=== PATIENT | male | born 1995 | race Hispanic/Latino ===

== ENCOUNTER 2018-02-23 05:16 | Emergency (ER) | payer BC, OTHER ==
[2018-02-23 06:09] LABS: Absolute Lymphocytes (CBC) 0.3 K/uL (0.7-4.9); Absolute Monocytes 0.4 K/uL (0.1-1.3); Absolute Neutrophil 7.5 K/uL (1.8-8.0); Basophils % 0.1 % (0-1.3); Eosinophils % 1.3 % (0-4.4); Hematocrit 46.5 % (39.6-49.0); Lymphocytes % 4.1 % (15.3-44.8); MCH 32.3 pg (27.0-35.0); MCV 93.7 fL (80-100); MPV 8.2 fL (7.6-11.3); Monocytes % 4.4 % (3.3-12.3); RBC Red Blood Cell Count 4.97 M/uL (4.33-5.43)
[2018-02-23] MEDS ORDERED: FAMOTIDINE 20 MG/2 ML VIAL IV ONE (06:14)
[2018-02-23] MEDS ORDERED: KETOROLAC 30 MG/ML INJ ONE (06:14)
[2018-02-23] MEDS ORDERED: NA CHLORIDE 0.9% 1,000 ML ONE (06:14)
[2018-02-23] MEDS ORDERED: ONDANSETRON 4 MG/2 ML VIAL ONE (06:14)
[2018-02-23 06:15] LABS: Bicarbonate 27 mEq/L (21-31); Glucose Level 130 mg/dL (65-120); Lipase 26 U/L (22-51); Potassium 3.7 mEq/L (3.6-5.0); Sodium Level 134 mEq/L (135-145)
[2018-02-23 06:21] LABS: ALT/SGPT 34 IU/L (10-60); AST/SGOT 34 IU/L (10-42); Albumin 4.9 g/dL (3.2-5.5); Alkaline Phosphatase 67 IU/L (42-121); Amylase Level 161 U/L (28-100); BUN Blood Urea Nitrogen 21 mg/dL (6-20); Bilirubin Direct 0.2 mg/dL (0-0.2); Bilirubin Total 1.5 mg/dL (0.3-1.2); Protein, Total 7.8 g/dL (6.0-8.3)
--- NOTE | 2018-02-23 07:07 | ER ---
Nurse's Notes [facility] Name: Dejon Saha Age: 22 yrs Sex: Male : 1995 Arrival Date: 02/23/2018 Time: 05:20 Bed 6 Private MD: Krzysztof Peralta R Diagnosis: Vomiting;Diarrhea, unspecified;Abdominal tenderness;Dermatitis, unspecified-mayito Presentation: 02/23 05:28 Presenting complaint: Patient states: Patient report eating at [employer] last night ao and then started having diarrhea with nausea and vomiting. Patient reported 6 vomiting episodes and 2 diarrhea VM. Patient has a rash under the umbilical area that has been there for the past few moths due to allergies to the rodrigues buckle. Transition of care: patient was not received from another setting of care. Onset of symptoms was February 22, 2018 at 22:00. Risk Assessment: Do you want to hurt yourself or someone else? Patient reports no desire to harm self or others. Initial Sepsis Screen: Does the patient meet any 2 criteria? HR > 90 bpm. No. Patient's initial sepsis screen is negative. Does the patient have a suspected source of infection? No. Patient's initial sepsis screen is negative. Care prior to arrival: None. 05:28 Method Of Arrival: Ambulatory ao 05:28 Acuity: PIO 3 ao Triage Assessment: 05:36 General: Appears in no apparent distress. comfortable, Behavior is calm, cooperative, ao appropriate for age. Pain: Complains of pain in abdomen Pain currently is 6 out of 10 on a pain scale. EENT: No signs and/or symptoms were reported regarding the EENT system. Neuro: Level of Consciousness is awake, alert, obeys commands, Oriented to person, place, time, situation, Appropriate for age Moves all extremities. Speech is normal, Facial symmetry appears normal. Cardiovascular: Capillary refill < 3 seconds Patient's skin is warm and dry. Respiratory: Airway is patent Respiratory effort is even, unlabored, Respiratory pattern is regular, symmetrical. GI: Abdomen is non-distended, Reports lower abdominal pain, diarrhea, nausea, vomiting. : No signs and/or symptoms were reported regarding the genitourinary system. Derm: Skin is pink, warm \T\ dry. Skin temperature is warm. Musculoskeletal: Range of motion: intact in all extremities. Historical: - Allergies: 05:35 No Known Allergies; ao - Home Meds: 05:35 None [Active]; ao - PMHx: 05:35 None; ao - PSHx: 05:35 None; ao - Immunization history:: Adult Immunizations up to date. - Social history:: Smoking status: Patient/guardian denies using tobacco, Patient uses alcohol, occasionally. Patient/guardian denies using alcohol. - Ebola Screening: : Patient negative for fever greater than or equal to 101.5 degrees Fahrenheit, and additional compatible Ebola Virus Disease symptoms Patient denies exposure to infectious person Patient denies travel to an Ebola-affected area in the 21 days before illness onset. Screenin:36 Abuse screen: Denies threats or abuse. Denies injuries from another. Nutritional ao screening: No deficits noted. Tuberculosis screening: No symptoms or risk factors identified. Fall Risk None identified. Assessment: 05:39 General: See triage assessment. GI: Abdomen is non-distended. ao 07:17 Reassessment: Pt reports feeling better. Patient ambulated to restroom with steady gait ss to give urine sample. General: Appears in no apparent distress. comfortable, Behavior is calm, cooperative. Pain: Denies pain. Neuro: Level of Consciousness is awake, alert, obeys commands. Respiratory: Respiratory effort is even, unlabored. Derm: Skin is intact, is healthy with good turgor, Skin is dry, Skin is pink, warm \T\ dry. normal. Musculoskeletal: Circulation, motion, and sensation intact. Capillary refill < 3 seconds, is brisk, in bilateral fingers. Range of motion: intact in all extremities, Swelling absent. Vital Signs: 05:34 BP 130 / 80; Pulse 108; Resp 18; Temp 98.6(O); Pulse Ox 100% on R/A; Weight 80.74 kg ao (R); Height 5 ft. 8 in. (172.72 cm); Pain 6/10; 06:00 BP 118 / 78; Pulse 103; Resp 16; Pulse Ox 99% ; Pain 0/10; ao 07:17 BP 121 / 74; Pulse 99; Resp 16; Pulse Ox 100% on R/A; Pain 0/10; ss 05:34 Body Mass Index 27.06 (80.74 kg, 172.72 cm) ao ED Course: 05:20 Patient arrived in ED. es 05:20 KatteVishala, MD is Private Physician. es 05:28 Mehdi Causey, RN is Primary Nurse. ao 05:33 Triage completed. ao 05:33 Arm band placed on right wrist. Patient placed in an exam room, on a stretcher, on ao pulse oximetry, Patient notified of wait time. 05:39 Patient has correct armband on for positive identification. Pulse ox on. NIBP on. ao 05:39 Abdominal pain workup initiated per nursing protocol. ao 05:51 Inserted saline lock: 20 gauge in right antecubital area, using aseptic technique. oe Blood collected. 06:02 Alessandro Mackenzie MD is Attending Physician. carolina 07:06 Krzysztof Peralta MD is Referral Physician. carolina 07:17 Charmaine Cuenca, LULA is Primary Nurse. ss 07:31 No provider procedures requiring assistance completed. IV discontinued, intact, ss bleeding controlled, No redness/swelling at site. Pressure dressing applied. Administered Medications: 06:18 Drug: TORadol 30 mg Route: IVP; Site: right antecubital; ao 07:14 Follow up: Response: No adverse reaction ao 06:19 Drug: Pepcid 20 mg Route: IVP; Site: right antecubital; ao 07:14 Follow up: Response: No adverse reaction ao 06:19 Drug: Zofran 4 mg Route: IVP; Site: right antecubital; ao 07:14 Follow up: Response: No adverse reaction ao 06:20 Drug: NS 0.9% 1000 ml Route: IV; Rate: 1 bolus; Site: right antecubital; ao 07:14 Follow up: IV Status: Completed infusion; IV Intake: 1000ml ao Intake: 07:14 IV: 1000ml; Total: 1000ml. ao Outcome: 07:07 Discharge ordered by . carolina 07:31 Discharged to home ambulatory. ss 07:31 Condition: improved 07:31 Discharge instructions given to patient, Instructed on discharge instructions, follow up and referral plans. medication usage, Demonstrated understanding of instructions, follow-up care, medications, Prescriptions given X 4. 07:32 Patient left the ED. ss Signatures: Alessandro Mackenzie MD MD cha Salyer, Edna es Smirch, Shelby, LULA RN Mehdi Causey, LULA RN Mateusz Caldwell oe
--- NOTE | 2018-02-23 07:07 | EDPHYS ---
Physician Documentation [facility] Name: Dejon Saha Age: 22 yrs Sex: Male : 1995 Arrival Date: 02/23/2018 Time: 05:20 Bed 6 Private MD: Krzysztof Peralta R ED Physician Alessandro Mackenzie HPI: 02/23 06:10 This 22 yrs old Male presents to ER via Ambulatory with complaints of carolina Nausea/Vomiting/Diarrhea. 06:10 The patient presents to the emergency department with nausea, vomiting, diarrhea, carolina abdominal pain, of the right upper quadrant, left upper quadrant, right lower quadrant and left lower quadrant. Onset: The symptoms/episode began/occurred last night. Possible causes: unknown. The symptoms are aggravated by nothing. Associated signs and symptoms: The patient has no apparent associated signs or symptoms. Severity of symptoms: At their worst the symptoms were mild in the emergency department the symptoms are unchanged. The patient has not experienced similar symptoms in the past. Historical: - Allergies: 05:35 No Known Allergies; ao - Home Meds: 05:35 None [Active]; ao - PMHx: 05:35 None; ao - PSHx: 05:35 None; ao - Immunization history:: Adult Immunizations up to date. - Social history:: Smoking status: Patient/guardian denies using tobacco, Patient uses alcohol, occasionally. Patient/guardian denies using alcohol. - Ebola Screening: : Patient negative for fever greater than or equal to 101.5 degrees Fahrenheit, and additional compatible Ebola Virus Disease symptoms Patient denies exposure to infectious person Patient denies travel to an Ebola-affected area in the 21 days before illness onset. ROS: 06:11 Constitutional: Negative for fever, chills, and weight loss, Eyes: Negative for injury, carolina pain, redness, and discharge, ENT: Negative for injury, pain, and discharge, Neck: Negative for injury, pain, and swelling, Cardiovascular: Negative for chest pain, palpitations, and edema, Respiratory: Negative for shortness of breath, cough, wheezing, and pleuritic chest pain, Back: Negative for injury and pain, : Negative for injury, bleeding, discharge, and swelling, MS/Extremity: Negative for injury and deformity, Skin: Negative for injury, rash, and discoloration, Psych: Negative for depression, anxiety, suicide ideation, homicidal ideation, and hallucinations, Allergy/Immunology: Negative for hives, rash, and allergies, Endocrine: Negative for neck swelling, polydipsia, polyuria, polyphagia, and marked weight changes, Hematologic/Lymphatic: Negative for swollen nodes, abnormal bleeding, and unusual bruising. 06:11 Abdomen/GI: Positive for abdominal pain. 06:11 Neuro: Positive for headache. Exam: 06:11 Constitutional: This is a well developed, well nourished patient who is awake, alert, carolina and in no acute distress. Head/Face: Normocephalic, atraumatic. Eyes: Pupils equal round and reactive to light, extra-ocular motions intact. Lids and lashes normal. Conjunctiva and sclera are non-icteric and not injected. Cornea within normal limits. Periorbital areas with no swelling, redness, or edema. ENT: Nares patent. No nasal discharge, no septal abnormalities noted. Tympanic membranes are normal and external auditory canals are clear. Oropharynx with no redness, swelling, or masses, exudates, or evidence of obstruction, uvula midline. Mucous membranes moist. Neck: Trachea midline, no thyromegaly or masses palpated, and no cervical lymphadenopathy. Supple, full range of motion without nuchal rigidity, or vertebral point tenderness. No Meningismus. Chest/axilla: Normal chest wall appearance and motion. Nontender with no deformity. No lesions are appreciated. Cardiovascular: Regular rate and rhythm with a normal S1 and S2. No gallops, murmurs, or rubs. Normal PMI, no JVD. No pulse deficits. Respiratory: Lungs have equal breath sounds bilaterally, clear to auscultation and percussion. No rales, rhonchi or wheezes noted. No increased work of breathing, no retractions or nasal flaring. Back: No spinal tenderness. No costovertebral tenderness. Full range of motion. Male : Normal genitalia with no discharge or lesions. Skin: Warm, dry with normal turgor. Normal color with no rashes, no lesions, and no evidence of cellulitis. MS/ Extremity: Pulses equal, no cyanosis. Neurovascular intact. Full, normal range of motion. Neuro: Awake and alert, GCS 15, oriented to person, place, time, and situation. Cranial nerves II-XII grossly intact. Motor strength 5/5 in all extremities. Sensory grossly intact. Cerebellar exam normal. Normal gait. Psych: Awake, alert, with orientation to person, place and time. Behavior, mood, and affect are within normal limits. 06:11 Abdomen/GI: Inspection: abdomen appears normal, Bowel sounds: active, Palpation: mild abdominal tenderness, in all quadrants, Liver: no appreciated palpable abnormalities, Hernia: not appreciated. Vital Signs: 05:34 BP 130 / 80; Pulse 108; Resp 18; Temp 98.6(O); Pulse Ox 100% on R/A; Weight 80.74 kg ao (R); Height 5 ft. 8 in. (172.72 cm); Pain 6/10; 06:00 BP 118 / 78; Pulse 103; Resp 16; Pulse Ox 99% ; Pain 0/10; ao 07:17 BP 121 / 74; Pulse 99; Resp 16; Pulse Ox 100% on R/A; Pain 0/10; ss 05:34 Body Mass Index 27.06 (80.74 kg, 172.72 cm) ao MDM: 06:02 Patient medically screened. [facility] 06:13 Data reviewed: vital signs, nurses notes, lab test result(s). [facility] 02/23 05:41 Order name: Amylase, Serum; Complete Time: 06:50 ao 02/23 05:41 Order name: Basic Metabolic Panel; Complete Time: 06:50 ao 02/23 05:41 Order name: CBC with Diff ao 02/23 05:41 Order name: Creatinine for Radiology; Complete Time: 06:18 ao 02/23 05:41 Order name: Hepatic Function; Complete Time: 06:50 ao 02/23 05:41 Order name: Lipase; Complete Time: 06:50 ao 02/23 05:41 Order name: Urine Microscopic Only ao 02/23 05:41 Order name: IV Saline Lock; Complete Time: 05:53 ao 02/23 06:11 Order name: CBC Smear Scan EDMS 02/23 07:30 Order name: Urine Dipstick--Ancillary (enter results) bd 02/23 05:41 Order name: Labs collected and sent; Complete Time: 05:53 ao 02/23 05:41 Order name: Urine Dipstick-Ancillary (obtain specimen); Complete Time: 07:20 ao Administered Medications: 06:18 Drug: TORadol 30 mg Route: IVP; Site: right antecubital; ao 07:14 Follow up: Response: No adverse reaction ao 06:19 Drug: Pepcid 20 mg Route: IVP; Site: right antecubital; ao 07:14 Follow up: Response: No adverse reaction ao 06:19 Drug: Zofran 4 mg Route: IVP; Site: right antecubital; ao 07:14 Follow up: Response: No adverse reaction ao 06:20 Drug: NS 0.9% 1000 ml Route: IV; Rate: 1 bolus; Site: right antecubital; ao 07:14 Follow up: IV Status: Completed infusion; IV Intake: 1000ml ao Disposition: 02/23/18 07:07 Discharged to Home. Impression: Vomiting, Diarrhea, unspecified, Abdominal tenderness, Dermatitis, unspecified - mayito. - Condition is Stable. - Discharge Instructions: Food Choices to Help Relieve Diarrhea, Pediatric, Diarrhea, Nausea and Vomiting, Vomiting and Diarrhea, Infant, Nausea and Vomiting, [id number], Diarrhea, [id number]. - Prescriptions for Pepcid 20 mg Oral Tablet - take 1 tablet by ORAL route every 12 hours for 10 days; 20 tablet. Zofran 4 mg Oral Tablet - take 1 tablet by ORAL route every 12 hours As needed; 20 tablet. Nystatin- Triamcinolone 100,000-0.1 unit/g-% Topical Cream - apply 1 application by TOPICAL route 2 times per day; 60 gram. Phenergan 25 mg Rectal Suppository - insert 1 suppository by RECTAL route every 6 hours As needed; 12 suppository. - Medication Reconciliation Form, Thank You Letter, Antibiotic Education, Prescription Opioid Use form. - Follow up: Krzysztof Peralta; When: 2 - 3 days; Reason: Recheck today's complaints, Continuance of care, Re-evaluation by your physician. - Problem is new. - Symptoms have improved. Signatures: Dispatcher [employer] EDSC Alessandro Mackenzie MD MD cha Smirch, Shelby, RN RN Mehdi Aponte RN RN shankar Corrections: (The following items were deleted from the chart) 07:32 07:07 02/23/2018 07:07 Discharged to Home. Impression: Vomiting; Diarrhea, unspecified; ss Abdominal tenderness; Dermatitis, unspecified - mayito. Condition is Stable. Discharge Instructions: Food Choices to Help Relieve Diarrhea, Pediatric, Diarrhea, Nausea and Vomiting, Vomiting and Diarrhea, , Nausea and Vomiting, [id number], Diarrhea, [id number]. Prescriptions for Pepcid 20 mg Oral Tablet - take 1 tablet by ORAL route every 12 hours for 10 days; 20 tablet, Zofran 4 mg Oral Tablet - take 1 tablet by ORAL route every 12 hours As needed; 20 tablet, Nystatin-Triamcinolone 100,000-0.1 unit/g-% Topical Cream - apply 1 application by TOPICAL route 2 times per day; 60 gram, Phenergan 25 mg Rectal Suppository - insert 1 suppository by RECTAL route every 6 hours As needed; 12 suppository. and Forms are Medication Reconciliation Form, Thank You Letter, Antibiotic Education, Prescription Opioid Use. Follow up: Krzysztof Peralta; When: 2 - 3 days; Reason: Recheck today's complaints, Continuance of care, Re-evaluation by your physician. Problem is new. Symptoms have improved. carolina
[2018-02-23 07:21] LABS: Blood Morphology Comment NOT SEEN (NOT SEEN); Platelet Estimate ADEQ; Urine White Blood Cell Casts OK
[2018-02-23 07:32] LABS: Urine Blood NEGATIVE (NEG); Urine Glucose NEGATIVE (NEG); Urine Protein 2+ (NEG); Urine Specific Gravity 1.025 (1.005-1.030)
[2018-02-23 07:40] LABS: Urine Amorphous Sediment 1+ /HPF (NONE SEEN); Urine Bacteria <20 /HPF (NONE SEEN); Urine Culture Reflex Order NOT NEEDED; Urine Mucus 1+ /HPF (NONE SEEN); Urine RBC <5 /HPF (NONE SEEN)
== END 2018-02-23 07:32 | disposition home or self-care (01) ==
LOC: ER 05:16
DX: R19.7 Diarrhea, unspecified (principal); L24.81 Irritant contact dermatitis due to metals; R10.819 Abdominal tenderness, unspecified site
CPT/HCPCS: 36415; 80048; 80076; 81003; 81015; 82150; 83690; 85025; 96361; 96374; 96375; 99284; J2405; J7030